=== PATIENT | male | born 1995 | race African-American/Black ===

== ENCOUNTER 2021-08-02 20:18 | Inpatient (IN) | payer OTHER ==
[~2021-08-02] VITALS: Ht 172.7 cm; Wt 54.4 kg
--- NOTE | ~2021-08-02 | EMS ---
[facility] [address] [place] [address] EMS Patient Care Report Name: GILMA TRUJILLO Room #: REG ARNIE Mcgrath#: [id number] Admission: 08/02/21 Attend Phys: Discharge: Date of : [birth year] Report #: [id number] THIS REPORT FOR: //name// Report Transmitted: 08/02/2021 20:41 EMS Care Summary [place], [place]/[facility] Incident [id number] @ 08/02/2021 19:53 Incident Location [address] [place] [id number] Patient GILMA TRUJILLO Male, 25 Years 1995 Patient Address [address] [place] [id number] Patient History None Reported, Patient Allergies No known allergies, Patient Medications None Reported, Chief Complaint muscle contractions Disposition Transported No Lights/George Dispatch Reason Allergic Reaction/Stings Transported To [facility] Narrative pt met us outside the apt. he appears in pain and is having difficulty walking due to obv spasms in ext. pt states he [place] [facility] [facility] [place] [facility] [address] [place] [address] EMS Patient Care Report Name: GILMA TRUJILLO Room #: REG ARNIE Mcgrath#: [id number] Admission: 08/02/21 Attend Phys: Discharge: Date of : [birth year] Report #: [id number] for N/V for possible food poisoning. all day today he has had muscle spasms that have gotten so bad over the course of the day he can no longer walk. he also c/o the spasms starting to affect his neck and jaw. pt reports spasms are now continuous and very painful. he req eval at [facility]. pt moved to cot, VS, IV lock, transport w/o change. Initial Vitals @20:05P: 122,R: 24,BP: 180/100,Pain: 8/10,GCS: 15,Temp: 97.9F,SpO2: 99,Revised Trauma: 12, Assessments @20:00MENTAL:No Abnormalities,SKIN:Diaphoresis,HEENT:Head/Face: No Abnormalities,LUNG SOUNDS:ABDOMEN:PELVIS//GI:EXTREMITIES:PULSE:NEURO:Other,Tremors, Impression Extremity Pain Procedures @20:00ALS AssessmentResponse: Unchanged@20:01StretcherResponse: Unchanged@20:07Saline Lock 10cc (20 ga) Site: Antecubital-LeftResponse: UnchangedSucceeded Timeline 19:52,Call Received 19:52,Dispatch Notified 19:53,Dispatched 19:55,En Route 19:58,On Scene 19:59,At Patient 20:00,ALS Assessment,Response: Unchanged 20:01,Stretcher,Response: Unchanged 20:05,BP: 180/100 M,PULSE: 122,RR: 24 R,SPO2: 99 Ox,ETCO2: ,BG: ,PAIN: 8,GCS: 15, 20:07,Saline Lock 10cc 20 ga Site: Antecubital-Left,Response: UnchangedSucceeded, 20:08,Depart Scene 20:14,At Destination 20:30,Call Closed Disclaimer v1.1 Copyright 2020 [employer] This EMS Care Summary contains data elements from the applicable legal record (which may be displayed differently). It is designed to provide pertinent information for the following purposes: continuity of care, clinical quality, and state data reporting. The complete legal record is available to ED staff [address] [address] EMS Patient Care Report Name: GILMA TRUJILLO Room #: REG ARNIE Mcgrath#: [id number] Admission: 08/02/21 Attend Phys: Discharge: Date of : [birth year] Report #: [id number] and administrators of the receiving hospital in [employer] Patient Tracker. All data is provided "as is."
[2021-08-02 20:25] VITALS: BP 123/79
[2021-08-02 21:30] VITALS: BP 132/67
[2021-08-02 21:36] LABS: ABSOLUTE NEUTROPHILS 5.5 thou/uL (1.4-8.2); BASOPHILS 0.7 % (0.0-2.0); EOSINOPHILS 0.4 % (0.0-3.0); HEMOGLOBIN 12.9 gm/dL (14.0-18.0); LYMPHOCYTES 16.8 % (24.0-44.0); MCH 29.7 pg (26.0-34.0); MCHC 33.1 g/dL (28.0-37.0); MCV 89.9 fL (80.0-100.0); MONOCYTES 9.3 % (1.0-8.0); PLATELET COUNT 217 thou/uL (150-400); POLYS 72.8 % (36.0-66.0); RBC 4.34 mil/uL (4.50-6.00); RDW 13.4 % (10.5-14.5); WBC 7.5 thou/uL (4.0-11.0)
[2021-08-02 21:41] LABS: CREATININE 0.8 mg/dL (0.7-1.3); POTASSIUM 3.4 mmol/L (3.5-5.1)
[2021-08-02 21:57] LABS: ALBUMIN 3.7 g/dL (3.4-5.0); TOTAL BILIRUBIN 0.2 mg/dL (0.2-1.0); TOTAL PROTEIN 6.8 g/dL (6.4-8.2)
[2021-08-02 23:52] LABS: URINE BILIRUBIN NEGATIVE (Negative); URINE BLOOD 1+ (Negative); URINE CLARITY CLEAR; URINE COLOR YELLOW; URINE GLUCOSE-RANDOM* NEGATIVE (Negative); URINE KETONES TRACE (Negative); URINE LEUKOCYTES-REFLEX NEGATIVE (Negative); URINE NITRITE-REFLEX NEGATIVE (Negative); URINE PROTEIN (DIPSTICK) NEGATIVE (Negative); URINE UROBILINOGEN 0.2 E.U./dl (0.2-1.0)
[2021-08-03 00:08] LABS: AMP/METHAMP Negative (Negative); BARBITURATES Negative (Negative); BENZODIAZEPINES Negative (Negative); COCAINE Negative (Negative); METHADONE Negative (Negative); OPIATES Negative (Negative); PCP Negative (Negative)
[2021-08-03 00:09] LABS: BACTERIA-REFLEX None Seen /HPF (None Seen); CASTS None Seen /LPF (None Seen); CRYSTALS None Seen /LPF (None Seen); MUCUS 0-3 Light strn/LPF (None Seen); SQUAMOUS None Seen /LPF (0-3); URINE RBC 1-2 Rare /HPF (NONE SEEN); URINE WBC-REFLEX None Seen /HPF (0-5)
--- NOTE | 2021-08-03 04:15 | NUR ---
PT ASKING FOR SLEEP AID. HOSPITALIST NOTIFIED. PER HOSPITALIST ORDER, NO SLEEP AID MEDICATIONS WILL BE ORDERED AFTER 3AM.
[2021-08-03 05:36] VITALS: BP 132/67
== END 2021-08-03 05:36 | disposition left against medical advice (07) | DRG 558 ==
LOC: ER 20:18 → EROBS 22:52
PROVIDERS: Nurse Practitioner; ADMIT Internal Medicine; ATTEND Internal Medicine
DX: M62.82 Rhabdomyolysis (principal); F12.90 Cannabis use, unspecified, uncomplicated; Z20.822 Contact with and (suspected) exposure to COVID-19; Z53.29 Procedure and treatment not carried out because of patient's decision for other reasons